=== PATIENT | male | born 1960 | race Caucasian/White ===

== ENCOUNTER 2018-08-03 10:47 | Emergency (ER) | payer OTHER ==
[2018-08-03 11:10] VITALS: BP 147/77
--- NOTE | 2018-08-03 12:05 | UC ---
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 HAS HAD PAIN SINCE THEN. HISTORY OF EXTENSIVE MUSCLE/ CONNECTIVE TISSUE REPAIR AFTER SIMILAR INJURY ABOUT 10 YEARS AGO. - History of Current Complaint Chief Complaint: UCUpperExtremity Stated Complaint: SHOULDER INJURY Time Seen by Provider: 08/03/18 11:02 Hx Obtained From: Patient Onset/Duration: Sudden Onset, Lasting Days, Still Present Timing: Constant Severity Initially: Moderate Severity Currently: Moderate Location Of Pain: Is Discrete @ - RIGHT SHOULDER Pain Intensity: 6 Pain Scale Used: 0-10 Numeric Character: Sharp Aggravating Factor(s): Movement Alleviating Factor(s): Rest Associated Signs And Symptoms: Negative: Swelling Related History: Dominant Hand Right - Allergies/Home Medications Allergies/Adverse Reactions: Allergies Allergy/AdvReac Type Severity Reaction Status Date / Time No Known Allergies Allergy Verified 08/03/18 11:10 Home Medications: Home Medications Omeprazole 40 mg PO 08/03/18 [History] PMH/Surg Hx/FS Hx/Imm Hx GI/ History: Gastroesophageal Reflux - Surgical History Surgical History: Yes Surgery Procedure, Year, and Place: bilat shoulders repaired, appy - Family History Known Family History: Positive: Non-Contributory - Social History Alcohol Use: Occasionally Substance Use Type: None Smoking Status (MU): Never Smoked Tobacco Review of Systems All Other Systems Reviewed And Are Negative: Yes Constitutional: Positive: Negative Skin: Positive: Negative Respiratory: Positive: Negative Cardiovascular: Positive: Negative Gastrointestinal: Positive: Negative Musculoskeletal: Positive: Arthralgia, Myalgia Physical Exam Triage Information Reviewed: Yes Appearance: Well-Appearing, No Pain Distress, Well-Nourished Vital Signs: Initial Vital Signs Temp 97.9 F 08/03/18 11:03 Pulse 85 08/03/18 11:03 Resp 18 08/03/18 11:03 BP 147/77 08/03/18 11:03 Pulse Ox 97 08/03/18 11:03 Vital Signs Reviewed: Yes Eyes: Positive: Conjunctiva Clear ENT: Positive: Hearing grossly normal Neck: Positive: Supple Respiratory: Positive: No respiratory distress, No accessory muscle use Cardiovascular: Positive: Pulses Normal Abdomen Description: Positive: Soft Musculoskeletal: Positive: ROM Intact, No Edema, Other: - TTP DIFFUSELY BUT WORSE ANTERIORLY. EQUIVOCAL ROTATOR CUFF TESTING. POSITIVE YERGASON Neurological: Positive: Alert, Muscle Tone Normal Psychological: Positive: Age Appropriate Behavior Skin: Negative: Rashes Diagnostics - Radiology RIGHT SHOULDER XRAYS Radiology Interpretation Completed By: Radiologist Summary of Radiographic Findings: OSTEOARTHRITIS. NO ACUTE OSSEOUS INJURY. Shoulder Course/Dx - Differential Dx/Diagnosis Provider Diagnosis: Sprain of right shoulder Discharge - Sign-Out/Discharge Documenting (check all that apply): Patient Departure All imaging exams completed and their final reports reviewed: Yes - Discharge Plan Condition: Stable Disposition: HOME Patient Education Materials: Shoulder Pain (ED) Forms: *Work Release Referrals: Adilia Lai MD [Medical Doctor] - 1 Week Additional Instructions: RIGHT SHOULDER XRAY SHOWS OSTEOARTHRITIS. NO ACUTE BONY INJURY. FOLLOW-UP WITH ORTHOPEDICS TO DISCUSS YOUR TREATMENT OPTIONS. YOU MAY BENEFIT FROM [facility]. - Billing Disposition and Condition Condition: STABLE Disposition: Home
== END 2018-08-03 12:24 | disposition home or self-care (01) ==
LOC: UCEAST 10:47
DX: S43.401A Unspecified sprain of right shoulder joint, initial encounter (principal); X50.0XXA Overexertion from strenuous movement or load, initial encounter; Y99.0 Civilian activity done for income or pay; M19.011 Primary osteoarthritis, right shoulder
CPT/HCPCS: 99201; G0463

== ENCOUNTER 2018-12-14 06:39 | Day surgery (SDC) | payer OTHER ==
[~2018-12-14 06:39] MED LIST: Buffered Lidocaine 1% SYRIN* 1 ML/SYRINGE INTRADERM ONE; Dexamethasone IV* 4 MG/ML 1 ML (4 MG) IV SLOW PU ONE; Famotidine IV* 10 MG/ML 2 ML (20 mg) IV ONE; Lactated Ringers 1000 ML Bag* 1,000 ML IV SCH
[2018-12-14] MEDS ORDERED: Buffered Lidocaine 1% SYRIN* 1 ML/SYRINGE INTRADERM ONE (07:16)
[2018-12-14] MEDS ORDERED: ceFAZolin 2 GM in NS PREMIX(*) 2 GM/100 ML BAG IVPB ONE (07:16)
[2018-12-14] MEDS ORDERED: Famotidine IV* 10 MG/ML 2 ML (20 mg) ONE (07:16)
[2018-12-14] MEDS ORDERED: Dexamethasone IV* 4 MG/ML 1 ML (4 MG) ONE (07:16)
[2018-12-14] MEDS ORDERED: Ketorolac INJ* 30 MG/ML 1 ML VIAL IV PRN (07:55)
[2018-12-14] MEDS ORDERED: DiMENhydriNATE IV* 50 MG/ML VIAL IV PUSH PRN (07:55)
[2018-12-14] MEDS ORDERED: Naloxone* 0.4 MG/ML 1 ML VIAL IV PRN (07:55)
[2018-12-14] MEDS ORDERED: fentaNYL* 50 MCG/ML 2 ML VIAL (100 MCG VIAL) IV PRN (07:55)
[2018-12-14] MEDS ORDERED: Midazolam* 1 MG/ML 2 ML VIAL (2 MG) ONE (08:07)
[2018-12-14] MEDS ORDERED: fentaNYL* 50 MCG/ML 2 ML VIAL (100 MCG VIAL) ONE (08:07)
[2018-12-14] MEDS ORDERED: ROPIVACAINE 5 MG/ML 30 ML BTL (0.5%) ONE (08:08)
[2018-12-14] MEDS ORDERED: Propofol* 10 MG/ML 20 ML BTL ONE (08:12)
[2018-12-14] MEDS ORDERED: Rocuronium* 10 MG/ML VIAL ONE (08:12)
[2018-12-14] MEDS ORDERED: Bupivacaine 0.5% W/EPI SDV* 10 ML VIAL INJ ONE (08:28)
[2018-12-14] MEDS ORDERED: EPINEPHRINE 1 MG/ML 1 ML VIAL ONE (08:28)
[2018-12-14] MEDS ORDERED: Ondansetron INJ* 2 MG/ML VIAL ONE (09:52)
[2018-12-14] MEDS ORDERED: Lidocaine 2% PF * 5 ML VIAL ONE (10:46)
[2018-12-14 13:57] VITALS: BP 135/89
--- NOTE | 2018-12-15 18:47 | OP ---
AMENDED REPORT NOW INCLUDES DATE OF OPERATION DATE OF OPERATION: 12/14/18 - [facility] DATE OF : 64 SURGEON: Wiliam Carvajal MD EARLY MORNING: JOYCE Norton. A physician veterinary assistant technician was required for the length of the procedure for assistance with patient positioning, instrumentation, closure, and retraction. ANESTHESIOLOGIST: Dr. Celestino Phelps. ANESTHESIA: General anesthesia, regional interscalene block anesthesia, local anesthesia consisting of Marcaine 0.5% with epinephrine 10 cc placed subcutaneous. PRE-OP DIAGNOSES: 1. Right shoulder rotator cuff tendon tear, recurrent, supraspinatus, infraspinatus with significant retraction. 2. Right shoulder subacromial impingement and bursitis. 3. Right shoulder acromioclavicular joint osteoarthritis. 4. Right shoulder prior arthroscopic tenodesis. 5. History of in 2006 right shoulder surgery consisting of arthroscopic rotator cuff tendon repair, supraspinatus and infraspinatus with arthroscopic biceps tenodesis. POST-OP DIAGNOSES: 1. Right shoulder rotator cuff tendon tear, recurrent, supraspinatus, infraspinatus without significant retraction. 2. Right shoulder subacromial impingement and bursitis. 3. Right shoulder acromioclavicular joint osteoarthritis. 4. Prior arthroscopic biceps tenodesis with a Javi deformity. 5. Prior in 2006 outside hospital surgery consisting of right shoulder arthroscopic rotator cuff tendon repair, supraspinatus, infraspinatus, arthroscopic tenodesis biceps. OPERATIVE PROCEDURE: 1. Right shoulder arthroscopic revision rotator cuff tendon repair, supraspinatus, infraspinatus, double row, 5 anchors. 2. Modifier 22 for an unusual or complex procedure. 3. Right shoulder arthroscopic subacromial decompression. 4. Right shoulder arthroscopic distal clavicle resection. 5. Right shoulder revision open proximal biceps tenodesis. ANTIBIOTICS: Ancef 2 g IV. IV FLUIDS: 900 cc of crystalloid. [id number] TIME: 151 minutes. ARTHROSCOPIC FLUID UTILIZED: Not recorded. SPECIMENS: None. IMPLANTS: Arthrex double loaded corkscrew anchors x3. Arthrex SwiveLock anchors x2. Arthrex proximal biceps tenodesis button x1. COMPLICATIONS: None. ESTIMATED BLOOD LOSS: Minimal. INDICATIONS FOR PROCEDURE: The patient had an injury and surgery 12 years ago that was successful. He then had a new injury at work on 07/30/18. It was a high- energy injury. The patient fell to the ground while moving a 600-pound piece of equipment. The patient was referred to my clinic. He complained of right shoulder pain and weakness. I recommended surgery at his first clinic visit with me. Because of Workers' Compensation approval is required, I did not see the patient back between and 12/10/18. MRI showed recurrent tear of the supraspinatus and infraspinatus. Based on MRI imaging, I thought that the musculo-tendinous junction of the supraspinatus would be at the level of the glenoid and that the patient just had some scar tissue present superior to the humeral head. Therefore, I was thinking preoperatively that this was significant retraction medially. Given this being a recurrent tear, involving 2 tendons with what I believe to be significant retraction, I prepared the patient for the possibility of both a rotator cuff repair and a superior capsular repair, the latter if the rotator cuff was not repairable. I spoke to the patient at some length about how given that this is a 2-tendon tear and recurrent, the likelihood of successful healing and lack of retear is much lower than with a primary single tendon injury. I spoke to the patient about the long recovery postoperative. I also spoke to the patient about work postoperatively. 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 My goal for this patient is a pain-free functional strong shoulder for activities of daily living including work, but I recommended against heavy lifting no matter how successful this surgical outcome is. 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 When the patient first met me in clinic, he did not comprehend that anterior and posterior labrum tears, if present would not be repaired at this age and would have no utility whatsoever. It took some discussion for the patient to appreciate that. As well, the patient was somewhat fixated on having his biceps repaired thinking that the biceps would help him return to full activity. I had spoken to the patient about biceps release versus tenodesis and tried to impress upon the patient that his rotator cuff strength is what will matter and not his biceps for shoulder function. The patient mostly understood, but preferred a biceps tenodesis. I told the patient that I would do a biceps tenodesis, revision, if it did not impair the rest of the surgical result. Discussed risks and potential complications including shoulder pain, weakness, stiffness, rotator cuff tendon retear, need for repeat surgery. DESCRIPTION OF PROCEDURE: In preoperative holding, the patient signed a written consent. Operative extremity was marked in preoperative holding. The patient underwent interscalene regional nerve block by Anesthesia. The patient was taken back to the operating room and placed supine on operating room table. Sedated and intubated. Converted to the lateral decubitus position. Axillary roll. All bony prominences padded. Beanbag hardened. Longitudinal traction with 15 pounds right shoulder. Right shoulder prepped and draped. Formal surgical time-out performed. I infused 30 cc of normal saline into the right shoulder glenohumeral joint from posterior. I made a posterior glenohumeral joint portal. I entered the shoulder. No loose bodies. I saw grade 1 articular cartilage injury on the glenoid and humeral head, but no more significant than this. This was somewhat surprising given that the operative note from 12 years ago describes grade 3 and 4 articular cartilage changes. The patient had no subscapularis rotator cuff tendon tear. There was no biceps tendon visible, long head. Established an anterior glenohumeral joint portal under direct visualization. Debrided some rotator cuff interval tissue. Looked up. Was surprised to see that the supraspinatus was not retracted to the level of the glenoid. It was much closer to the humerus. I debrided some of the undersurface of the rotator cuff tendon. This was an excellent surprise that there was not significant retraction of the supraspinatus. At this point, I thought that the rotator cuff was likely repairable. Removed instruments and fluid from the glenohumeral joint and moved to subacromial space. Made anterior and posterior glenohumeral joint portals. Next established lateral and posterolateral portals under direct visualization. Debrided subacromial bursitic tissue with arthroscopic shaver. Identified rotator cuff tear. There was a crescent-shaped rotator cuff tear in the supraspinatus tendon. It was not significantly retracted. It was retracted to just medial to its footprint, to the footprint on the humeral head. I debrided the end of it with an arthroscopic shaver to ensure that this was rotator cuff tendon tissue and not scar. It appeared to be. The patient had a very wide supraspinatus tendon it seemed. Down the posterosuperior aspect of the humeral head, there appeared to be at least an undersurface tear in an external rotator. Was not clear if this was an infraspinatus starting lower or part of the teres minor, but I believe that this was infraspinatus. Interestingly, despite metallic anchors being present on preoperative imaging, both very anterior appearing, there was some suture and a likely anchor present just on the undersurface of this area that had torn , with some suture visible. I debrided that suture with an arthroscopic shaver and it appeared that that was likely the location of one of the anchors, on the undersurface of the infraspinatus. I next performed subacromial decompression with an arthroscopic fito smoothing out the curve on the anterior aspect of the acromion. I did this after skeletonizing the undersurface of the acromion with a cautery device. I next prepared the footprint of the supraspinatus and infraspinatus with an arthroscopic fito to encourage healing. In order to address some undersurface tearing of the infraspinatus tendon that appeared again a little bit more inferior with regards to its superior edge than I typically see, I placed an anchor, corkscrew, Arthrex. I placed that adjacent to the prior anchor. I used an antegrade suture passer to pass 2 FiberTapes, 1 in a horizontal mattress configuration, the other in a simple configuration through the infraspinatus tendon. This had the effect of increasing the footprint of the infraspinatus on the humeral head and it also slightly superiorized that tendon. I next moved forward with a more standard double row repair of a very wide supraspinatus tendon. Through supero-lateral poke holes, I placed 2 corkscrew Arthrex anchors in the medial aspect of the footprint. I had to adjust slightly the position of the more anterior of the 2 anchors because of some resistance, likely because of a prior metallic anchor. I used an antegrade suture passer to place horizontal mattress stitches with the FiberTape, from each of these anchors. I passed all suture before I tied the horizontal mattress stitches. With the stitches tied, it showed excellent approximation of tendon to bone. I next took the suture tape from the medial row and placed it into 2 lateral row SwiveLock anchors, 1 more anterior and the other more posterior. Excellent large surface area of tissue apposing bone. There was the slightest bit of dog ear anterior and posterior. Therefore, I took 1 FiberWire #2 from the anterolateral anchor and one #2 FiberWire from the posterolateral anchor and placed simple stitches, 1 anterior and 1 posterior. This really maximized the amount of footprint of tendon to bone. Excellent anatomic rotator cuff repair, stable. I next moved to the AC joint. Debrided bursitic tissue with a cautery device and then removed 8 mm of the distal end of the clavicle with an arthroscopic fito. I next closed skin incisions with [id number] and 12 stitches using nylon 3- 0 suture. Next removed the patient's right arm from traction and converted the patient to a hybrid supine position. Made longitudinal anteromedial upper arm skin incision and dissected down to bicipital groove. The patient's biceps tendon long head was noted. It clearly was in an inferiorized position. I was surprised that when I pulled on the biceps tendon , it did not come from proximal. I surmised that it had likely been incorporated into the rotator cuff tendon repair. Given that it was in this inferiorized position, I wanted to improve to length tension relationship, improve the cosmesis of the upper arm, and improve the strength, so I released the biceps tendon as far proximal as I could see and went about performing a typical open proximal biceps tenodesis. Placed my Beath pin unicortically. Placed 4 stitches with FiberLoop suture at the correct level of the long head biceps tendon. Loaded a button. Passed the button into bone and flipped it. Tied a knot. Used a free needle to pass a second knot. Removed excess biceps tendon and suture. Irrigation of wound. Closure of the subcutaneous tissue with buried simple stitches using Vicryl 3-0 suture. Closure of the skin with a running subcuticular stitch using Monocryl 4 -0 suture. Mastisol, Steri-Strips. Local anesthetic injected about that incision, 10 cc. 4x4 followed by Tegaderm over the anterior incision. Arthroscopic incisions received Xeroform, 4x4s, ABD, and foam tape. Sling and abduction pillow. The patient was awakened, extubated, and transferred to the PACU. DISPOSITION: Percocet as needed for pain control, Keflex for infection prophylaxis. Wound care instructions provided. Sling at all times day and night. No physical therapy. The patient will follow up with me 10 to 14 days postoperatively. [id number]/[facility] #: [id number] MTDLittle
== END 2018-12-14 13:59 | disposition home or self-care (01) ==
LOC: OR 06:39
PROVIDERS: ATTEND Orthopaedic Surgery
DX: S46.011A Strain of muscle(s) and tendon(s) of the rotator cuff of right shoulder, initial encounter (principal); M75.41 Impingement syndrome of right shoulder; M75.51 Bursitis of right shoulder; M19.011 Primary osteoarthritis, right shoulder; W19.XXXA Unspecified fall, initial encounter; Y99.0 Civilian activity done for income or pay; Y93.89 Activity, other specified; Y92.9 Unspecified place or not applicable; G89.18 Other acute postprocedural pain; Z87.891 Personal history of nicotine dependence; K21.0 Gastro-esophageal reflux disease with esophagitis; K22.70 Barrett's esophagus without dysplasia; R25.1 Tremor, unspecified; F41.8 Other specified anxiety disorders
CPT/HCPCS: C1713; C1776; J0690; J1100; J2250; J2405; J2704; J2795; J3010

== ENCOUNTER 2019-01-31 10:28 | Emergency (ER) | payer BC, OTHER ==
--- NOTE | 2019-01-31 11:08 | ED ---
Back Pain - HPI Summary HPI Summary: This patient is a 58-year-old male who presents to the ED with a right upper rib pain after falling down some stairs 1 week ago. Patient is endorsing pain to the right upper ribs without radiation otherwise. He denies any pain to the back. Difficulty with breathing and endorses a mild cough with phlegm is clear in color. Continues to eat and drink okay. Normal bowel movements. Denies any urinary symptoms. Denies any melena, hematochezia, hemoptysis, or hematemesis. Denies any fevers, sweats, chills. Patient is otherwise healthy. He states symptoms are worse with lying on to the right side and worse at bedtime. No other complaints. - History of Current Complaint Chief Complaint: EDChestWallPain Stated Complaint: RIGHT SIDE RIB PAIN FROM FALL PER PT Time Seen by Provider: 01/31/19 10:34 Hx Obtained From: Patient Onset/Duration: Sudden Onset Onset/Duration: Started Hours Ago Timing: Constant Back Pain Location: Is Discrete @ Pain Intensity: 8 Aggravating Symptom(s): Movement Alleviating Symptom(s): Rest, Position Associated Signs And Symptoms: Positive: Negative - Risk Factors AAA Risk Factors: Negative TAD Risk Factors: Negative Cauda Equina Risk Factors: Negative Epidural Abscess Risk Factors: Negative - Allergies/Home Medications Allergies/Adverse Reactions: Allergies Allergy/AdvReac Type Severity Reaction Status Date / Time No Known Allergies Allergy Verified 01/31/19 10:29 Home Medications: Home Medications oxyCODONE TAB* [Roxycodone TAB 5 mg*] 5 mg PO Q4H PRN 01/31/19 [History Confirmed 01/31/19] PMH/Surg Hx/FS Hx/Imm Hx Previously Healthy: Yes Endocrine/Hematology History: Denies: Hx Diabetes Cardiovascular History: Reports: Hx Hypertension - AT 'S OFFICE SLIGHTLY HIGH , NO MEDS Denies: Hx Pacemaker/ICD GI History: Reports: Hx Gastroesophageal Reflux Disease - ON MEDS DAILY History: Denies: Hx Dialysis, Hx Renal Disease Sensory History: Reports: Hx Contacts or Glasses - GLASSES, WILL NOT BE WEARING DAY OF SURGERY Denies: Hx Hearing Aid Opthamlomology History: Reports: Hx Contacts or Glasses - GLASSES, WILL NOT BE WEARING DAY OF SURGERY Neurological History: Reports: Other Neuro Impairments/Disorders - TREMOR, BOTH HANDS PAST 15 YEARS, WILL DISCUSS WITH NEW PRIMARY, HASN'T SEE Psychiatric History: Reports: Hx Anxiety - hX of, states ok currently, no meds, Hx Depression Denies: Hx Panic Disorder - Surgical History Surgery Procedure, Year, and Place: 2008 2015 bilat shoulders repaired, [place]. TEENAGER APPENDECTOMY Hx Anesthesia Reactions: No - Immunization History Hx Pertussis Vaccination: No Immunizations Up to Date: Yes Infectious Disease History: No Infectious Disease History: Denies: Traveled Outside the [place] in Last 30 Days - Family History Known Family History: Positive: Non-Contributory - Social History Occupation: Employed Full-time Lives: With Family Alcohol Use: Weekly Alcohol Amount: 2-3/ WEEK Hx Substance Use: No Substance Use Type: Reports: None Hx Tobacco Use: Yes Smoking Status (MU): Former Smoker Type: Cigarettes Amount Used/How Often: 1 1/2 PPD Have You Smoked in the Last Year: No Review of Systems Negative: Fever, Chills, Fatigue, Skin Diaphoresis Negative: Palpitations, Chest Pain Negative: Shortness Of Breath, Cough Genitourinary: Negative Positive: no symptoms reported, see HPI Negative: Arthralgia, Myalgia Neurological: Negative All Other Systems Reviewed And Are Negative: Yes Physical Exam Triage Information Reviewed: Yes Vital Signs On Initial Exam: Initial Vitals Temp Pulse Resp BP Pulse Ox 97.4 F 85 16 145/86 100 01/31/19 10:28 01/31/19 10:28 01/31/19 10:28 01/31/19 10:28 01/31/19 10:28 Vital Signs Reviewed: Yes Appearance: Positive: Well-Appearing, Well-Nourished Skin: Positive: Warm, Skin Color Reflects Adequate Perfusion Head/Face: Positive: Normal Head/Face Inspection Eyes: Positive: EOMI, JAME, Conjunctiva Clear Neck: Positive: Supple, No Lymphadenopathy Respiratory/Lung Sounds: Positive: Clear to Auscultation, Breath Sounds Present Cardiovascular: Positive: RRR, Pulses are Symmetrical in both Upper and Lower Extremities Musculoskeletal: Positive: Pain @ - right rib pain Neurological: Positive: Speech Normal Psychiatric: Positive: Normal, Affect/Mood Appropriate AVPU Assessment: Alert Procedures - Sedation Patient Received Moderate/Deep Sedation with Procedure: No Diagnostics - Vital Signs Vital Signs Temp Pulse Resp BP Pulse Ox 01/31/19 10:28 97.4 F 85 16 145/86 100 - Laboratory Lab Statement: Any lab studies that have been ordered have been reviewed, and results considered in the medical decision making process. Back Pain Course/Dx - Course Course Of Treatment: During the course treatment, the patient's evaluated for right sided rib pain. She is endorsing pain to the right upper ribs. On physical examination, patient appears well, nondiaphoretic and nontoxic in appearing. Patient does not appear to be pale. There is no ecchymosis or other signs of trauma over to the right rib cage. Tenderness over the right upper ribs without pain to the right upper quadrant/liver otherwise. No tenderness to the abdomen throughout. Rib and chest x-ray obtained: The shows no acute osseous injury or rib fracture. I stop she has patient was given multiple doses of Percocet for a recent shoulder injury. Last filled of an 8 day supply filled on 01/17. Pt will be given 2 days tramadol and encouraged ibuprofen. Lungs CTA. RRR. - Diagnoses Differential Diagnosis/HQI/PQRI: Positive: Fracture, Strain, Sprain Provider Diagnoses: Rib contusion Discharge ED - Sign-Out/Discharge Documenting (check all that apply): Patient Departure - Discharge Plan Condition: Stable Disposition: HOME Prescriptions: traMADol TAB* [Ultram*] 50 mg PO Q8H PRN #6 tab MDD 3 PRN Reason: Pain Patient Education Materials: Rib Contusion (ED) Referrals: Ruby Artis DO [Primary Care Provider] - Additional Instructions: No rib fracture identified on xrays Ibuprofen 600mg three times daily as needed for pain Tylenol 650mg three times daily as needed for pain Use these intermittently For pain at bedtime or not well controlled with ibuprofen and tylenol - you may use the tramadol 50mg up to three times daily Moist heat to the area Use a pillow over the area if you need to cough Try to sleep on your other side for the discomfort For any worsening symptoms, please follow up with your PCP - Billing Disposition and Condition Condition: STABLE Disposition: Home - Attestation Statements Provider Attestation: pt seen by midlevel provider independently, based on their assessment, it was not necessary to present the case to me but I was available for consultation. I did not form a physician-patient relationship with the patient. The chart however, has been reviewed. am signing this note strictly in an administrative capacity.
[2019-01-31 11:56] VITALS: BP 0/0
== END 2019-01-31 11:50 | disposition home or self-care (01) ==
LOC: ED 10:28
DX: S20.219A Contusion of unspecified front wall of thorax, initial encounter (principal); W10.9XXA Fall (on) (from) unspecified stairs and steps, initial encounter; Y92.9 Unspecified place or not applicable; K21.9 Gastro-esophageal reflux disease without esophagitis; F41.9 Anxiety disorder, unspecified; Z87.891 Personal history of nicotine dependence; Z79.899 Other long term (current) drug therapy
CPT/HCPCS: 99282